=== PATIENT | male | born 1990 | race Caucasian/White ===

== ENCOUNTER 2017-06-13 17:26 | Inpatient (IN) | payer BC, OTHER ==
[~2017-06-13] VITALS: Ht 172.7 cm; Wt 65.8 kg
[2017-06-14] MEDS ORDERED: ONDANSETRON 4 MG/2 ML VIAL IM PRN (22:45)
[2017-06-14] MEDS ORDERED: MAG HYDROX/AL HYDROX/SIMETH 30 ML LIQUID UDC PO PRN (22:45)
[2017-06-14] MEDS ORDERED: CLONIDINE HCL 0.1 MG TABLET PO PRN (22:45)
[2017-06-14] MEDS ORDERED: IBUPROFEN 600 MG TABLET PO PRN (22:45)
[2017-06-14] MEDS ORDERED: DOCUSATE SODIUM 250 MG CAPSULE PO PRN (22:45)
[2017-06-14] MEDS ORDERED: LOPERAMIDE HCL 2 MG CAPSULE PO PRN ×2 (22:45)
[2017-06-14] MEDS ORDERED: LORAZEPAM 1 MG TABLET PO PRN (22:45)
[2017-06-14] MEDS ORDERED: BUPRENORPHINE HCL 2 MG TAB.SUBL SL PRN (22:45)
[2017-06-14] MEDS ORDERED: ONDANSETRON ODT 4 MG TAB.RAPDIS SL PRN (22:45)
[2017-06-14] MEDS ORDERED: MAGNESIUM HYDROXIDE 30 ML LIQUID UDC PO PRN (22:45)
[2017-06-14] MEDS ORDERED: DICYCLOMINE HCL 20 MG TABLET PO PRN (22:45)
[2017-06-14 23:52] LABS: BASOPHILS # (AUTO) 0.1 K/uL (0.0-8.0); BASOPHILS % (AUTO) 0.7 % (0.0-2.0); EOSINOPHILS # (AUTO) 0.4 K/uL (0.0-0.7); EOSINOPHILS % (AUTO) 2.6 % (0.0-7.0); HEMATOCRIT 45.8 % (36.7-47.1); HEMOGLOBIN 15.5 g/dL (12.5-16.3); LYMPHOCYTES # (AUTO) 4.8 K/uL (20.0-40.0); LYMPHOCYTES % (AUTO) 34.5 % (20.5-51.5); MEAN CORPUSCULAR HEMOGLOBIN 29.9 uug (23.8-33.4); MEAN CORPUSCULAR HGB CONC 34 g/dL (32.5-36.3); MEAN CORPUSCULAR VOLUME 88.4 fL (73.0-96.2); MONOCYTES # (AUTO) 1.2 K/uL (2.0-10.0); MONOCYTES % (AUTO) 8.7 % (0.0-11.0); NEUTROPHILS # (AUTO) 7.4 K/uL (1.8-8.9); NEUTROPHILS % (AUTO) 53.5 % (38.5-71.5); PLATELET COUNT (AUTO) 401 K/uL (152-348); RED BLOOD CELL COUNT(AUTO) 5.18 MIL/uL (4.06-5.63); WHITE BLOOD COUNT (AUTO) 13.8 K/uL (3.6-10.2)
[2017-06-15] VITALS: BP 133/90
[2017-06-15 00:15] LABS: ETHANOL < 3 MG/DL (0-0)
[2017-06-15 00:16] LABS: *AMPHETAMINE, URINE POSITIVE (NEGATIVE); *BARBITURATE, URINE NEGATIVE (NEGATIVE); *CANNABINOID, URINE NEGATIVE (NEGATIVE); *COCCAINE, URINE NEGATIVE (NEGATIVE); *OPIATE, URINE NEGATIVE (NEGATIVE); *PHENCYCLIDINE SCREEN,URINE NEGATIVE (NEGATIVE)
[2017-06-15 00:18] LABS: ALANINE AMINOTRANSFERASE 26 U/L (16-63); ALKALINE PHOSPHATASE 55 U/L (50-136); ASPARTATE AMINOTRANSFERASE 12 U/L (15-37); BILIRUBIN,TOTAL 0.3 mg/dL (0.2-1.0); CARBON DIOXIDE 35 mmol/L (21-32); CHLORIDE 101 mmol/L (98-107); CREATININE 1.2 mg/dL (0.6-1.3); GLUCOSE 90 mg/dL (74-106); MAGNESIUM 2.1 mg/dL (1.8-2.4); POTASSIUM 3.7 mmol/L (3.5-5.1); TOTAL PROTEIN, SERUM 8.1 g/dL (6.4-8.2); UREA NITROGEN, BLOOD 16 mg/dL (7-18)
[2017-06-15] MEDS: diphenhydrAMINE 50 MG CAPSULE PO PRN (02:32)
[2017-06-15 08:12] VITALS: BP 128/70
[2017-06-15] MEDS: METHOCARBAMOL 750 MG TABLET PO PRN (08:29)
[2017-06-15] MEDS ORDERED: TUBERCULIN,PURIF.PROT.DERIV. 5 TU/0.1 ML TEST ID ONE (09:00)
[2017-06-15] MEDS ORDERED: NICOTINE 14 MG/24HR PATCH TD PRN (11:15)
[2017-06-15] MEDS ORDERED: NICOTINE POLACRILEX 4 MG GUM-PK OF TEN BC PRN (11:15)
[2017-06-15 13:21] VITALS: BP 126/85
[2017-06-15] MEDS: BUPRENORPHINE HCL 2 MG TAB.SUBL SL SCH ×3 (13:22→21:35)
[2017-06-15 16:43] VITALS: BP 128/81
[2017-06-15 20:00] VITALS: BP 125/83
[2017-06-15] MEDS: ACETAMINOPHEN 325 MG TABLET PO PRN (21:35)
[2017-06-15] MEDS: GABAPENTIN 300 MG CAPSULE PO SCH (21:35)
[2017-06-16] VITALS: BP 109/79
[2017-06-16 04:00] VITALS: BP 93/56
[2017-06-16 08:10] VITALS: BP 100/64
[2017-06-16] MEDS: GABAPENTIN 300 MG CAPSULE PO SCH ×3 (08:37→21:18)
[2017-06-16] MEDS: BUPRENORPHINE HCL 2 MG TAB.SUBL SL SCH ×3 (08:38→21:20)
[2017-06-16 10:07] LABS: HEPATITIS B SURFACE AG Negative (Negative)
[2017-06-16 13:50] VITALS: BP 111/70
[2017-06-16 17:52] VITALS: BP 116/60
[2017-06-16 20:00] VITALS: BP 110/76
[2017-06-16] MEDS: BACLOFEN 10 MG TABLET PO SCH (21:19)
[2017-06-16] MEDS: CLONIDINE HCL 0.1 MG TABLET PO SCH (21:19)
[2017-06-16] MEDS: MIRALAX 17 GM POWD.PACK PO PRN (21:20)
[2017-06-16] MEDS: ACETAMINOPHEN 325 MG TABLET PO PRN (21:26)
[2017-06-17] VITALS: BP 101/59
[2017-06-17 08:00] VITALS: BP 112/74
[2017-06-17] MEDS: BACLOFEN 10 MG TABLET PO SCH ×3 (08:44→20:32)
[2017-06-17] MEDS: GABAPENTIN 300 MG CAPSULE PO SCH ×3 (08:44→20:33)
[2017-06-17] MEDS: CLONIDINE HCL 0.1 MG TABLET PO SCH ×3 (08:44→20:32)
[2017-06-17] MEDS ORDERED: BUPRENORPHINE HCL 2 MG TAB.SUBL SL SCH (09:00)
[2017-06-17 12:00] VITALS: BP 123/73
[2017-06-17] MEDS: BUPRENORPHINE HCL 2 MG TAB.SUBL SL SCH ×2 (14:26→20:31)
[2017-06-17 16:00] VITALS: BP 116/72
[2017-06-17 20:00] VITALS: BP 110/71
[2017-06-17] MEDS: MIRALAX 17 GM POWD.PACK PO PRN (20:30)
[2017-06-17] MEDS: ACETAMINOPHEN 325 MG TABLET PO PRN (20:32)
[2017-06-18 08:00] VITALS: BP 105/72
[2017-06-18] MEDS: BACLOFEN 10 MG TABLET PO SCH ×3 (08:42→20:36)
[2017-06-18] MEDS: GABAPENTIN 300 MG CAPSULE PO SCH ×3 (08:42→20:36)
[2017-06-18] MEDS: BUPRENORPHINE HCL 2 MG TAB.SUBL SL SCH ×3 (08:43→20:36)
[2017-06-18] MEDS: CLONIDINE HCL 0.1 MG TABLET PO SCH ×3 (08:44→20:44)
[2017-06-18] MEDS ORDERED: MAGNESIUM CITRATE 296 ML BOTTLE PO PRN (10:15)
[2017-06-18] MEDS: DOCUSATE SODIUM 250 MG CAPSULE PO SCH (10:52)
[2017-06-18 12:00] VITALS: BP 106/64
[2017-06-18] MEDS ORDERED: DIPH50CA37 PO (15:49)
[2017-06-18] MEDS ORDERED: GABA-534 PO ×2 (15:49)
[2017-06-18] MEDS ORDERED: DICY20TA28 PO (15:49)
[2017-06-18] MEDS ORDERED: HYDR-3895 PO (15:49)
[2017-06-18] MEDS ORDERED: IBUP-1955 PO (15:49)
[2017-06-18] MEDS ORDERED: CLON0.1T14 PO (15:49)
[2017-06-18] MEDS ORDERED: METH-406 PO (15:49)
[2017-06-18 16:00] VITALS: BP 102/56
[2017-06-18] MEDS: ACETAMINOPHEN 325 MG TABLET PO PRN (18:00)
[2017-06-18 20:00] VITALS: BP 106/58
[2017-06-19] VITALS (7 sets, daily range): BP systolic 85–130; BP diastolic 47–90
[2017-06-19] MEDS: KETOROLAC TROMETHAMINE 30 MG INJ IM PRN ×2 (06:01→19:32)
[2017-06-19] MEDS: HYDROXYZINE PAMOATE 25 MG CAPSULE PO PRN ×2 (06:01→23:41)
[2017-06-19] MEDS: CLONIDINE HCL 0.1 MG TABLET PO SCH ×3 (09:00→20:50)
[2017-06-19] MEDS ORDERED: BUPRENORPHINE HCL 2 MG TAB.SUBL SL SCH (09:00)
[2017-06-19] MEDS: DOCUSATE SODIUM 250 MG CAPSULE PO SCH (09:00)
[2017-06-19] MEDS: GABAPENTIN 300 MG CAPSULE PO SCH ×3 (12:33→20:50)
[2017-06-19] MEDS: DICYCLOMINE HCL 20 MG TABLET PO SCH ×2 (14:52→20:50)
[2017-06-19] MEDS: BACLOFEN 20 MG TABLET PO SCH ×2 (14:53→20:50)
[2017-06-19] MEDS: diphenhydrAMINE 50 MG CAPSULE PO PRN (23:41)
[2017-06-20] VITALS: BP 115/62
[2017-06-20] MEDS ORDERED: TRAZODONE 50 MG TABLET PO ONE (01:00)
[2017-06-20] MEDS: METHOCARBAMOL 750 MG TABLET PO PRN (01:24)
[2017-06-20 04:00] VITALS: BP 110/63
[2017-06-20 08:00] VITALS: BP 99/67
[2017-06-20] MEDS: DOCUSATE SODIUM 250 MG CAPSULE PO SCH (08:33)
[2017-06-20] MEDS: BACLOFEN 20 MG TABLET PO SCH (08:33)
[2017-06-20] MEDS: DICYCLOMINE HCL 20 MG TABLET PO SCH (08:33)
[2017-06-20] MEDS: CLONIDINE HCL 0.1 MG TABLET PO SCH (08:34)
[2017-06-20] MEDS: GABAPENTIN 300 MG CAPSULE PO SCH (08:34)
== END 2017-06-20 11:08 | disposition other institution (70) | DRG 895 ==
LOC: SRC 06-14 22:29
PROVIDERS: ADMIT Internal Medicine; ATTEND Internal Medicine
PROC: HZ2ZZZZ Detoxification Services for Substance Abuse Treatment (ICD-10-PCS; principal; 2017-06-14)
PROC: HZ41ZZZ Group Counseling for Substance Abuse Treatment, Behavioral (ICD-10-PCS; 2017-06-15)
PROC: HZ31ZZZ Individual Counseling for Substance Abuse Treatment, Behavioral (ICD-10-PCS; 2017-06-16)
DX: F11.23 Opioid dependence with withdrawal (principal); E87.3 Alkalosis; E86.0 Dehydration; F90.9 Attention-deficit hyperactivity disorder, unspecified type; K59.03 Drug induced constipation; Z81.1 Family history of alcohol abuse and dependence; F17.210 Nicotine dependence, cigarettes, uncomplicated; F16.10 Hallucinogen abuse, uncomplicated; F15.23 Other stimulant dependence with withdrawal; F10.11 Alcohol abuse, in remission; Y90.0 Blood alcohol level of less than 20 mg/100 ml; F14.10 Cocaine abuse, uncomplicated; D72.823 Leukemoid reaction
CPT/HCPCS: 36415; 70030-TC; 80307; 80324; 83735; 85025; 86580; 86592; 86705; 86803; 87340; 87806; G0480; J1885; Q0163